=== PATIENT | male | born 1940 | race Caucasian/White ===

== ENCOUNTER 2018-02-18 10:51 | Emergency (ER) | payer OTHER, MEDICARE ==
[~2018-02-18] VITALS: Ht 175.3 cm; Wt 82.6 kg
[~2018-02-18 10:51] MED LIST: AUGMENTIN 875-1 EACH PO; BRILINTA90 M1 PO; CALCIUM + D 6001 TAB PO; GABAPENTIN100 M2 PO; HEPARIN-1/25000 UNIT IV; LEVAQUIN500 MG PO; LEVOTHYROXINE100 MC1 PO; LEVOTHYROXINE75 MCG PO; LISINOPRIL10 MG PO; METOPROLOL TART50 MG PO; MULTIVITAMIN1 TAB PO; SIMVASTATIN40 MG PO; TAMSULOSIN HYD0.4 MG PO; VITAMIN C500 M3 PO; VITAMIN D31000 UNI2 PO
--- NOTE | 2018-02-18 11:19 | ED EAR COMPLAINT ---
History of Present Illness General Chief Complaint: Ear Complaints Stated Complaint: CLOGGED EARS Source: patient Exam Limitations: no limitations Vital Signs & Intake/Output Vital Signs & Intake/Output Vital Signs Date Time Temp Pulse Resp B/P B/P Pulse O2 O2 Flow FiO2 Mean Ox Delivery Rate 02/18 1240 98.7 67 18 177/80 99 Room Air 02/18 1118 96.6 71 18 156/76 98 Room Air Allergies Coded Allergies: aspirin (EPISTAXIS 08/17/16) Reconcile Medications Ascorbic Acid (Vitamin C) (Unknown Strength) TAB (Unknown Dose) PO DAILY SUPPLEMENT (Reported) Augmentin (Augmentin 500-125 Tablet) 500 MG-125 MG TABLET 1 TAB PO BID OTITIS MEDIA Cholecalciferol (Vitamin D3) 1,000 UNIT TABLET 1 TAB PO DAILY SUPPLEMENT ( Reported) Gabapentin 100 MG CAPSULE 3 CAP PO TID PAIN (Reported) Levothyroxine Sodium 75 MCG TABLET 1 TAB PO DAILY AC THYROID (Reported) Metoprolol Succinate 25 MG TAB 1 TAB PO DAILY HTN (Reported) Multivitamin (Multiple Vitamins) 1 TAB TAB 1 TAB PO DAILY SUPPLEMENT ( Reported) Simvastatin 40 MG TABLET 1 TAB PO QPM CHOLESTEROL (Reported) TAMSULOSIN HCL (Tamsulosin Hydrochloride) 0.4 MG CAP.ER.24H 1 CAP PO DAILY PROSTATE (Reported) Triage Note: PT STATES HE HAS HAD AN ITCHY EAR SINCE WEDNESDAY PT STATES HE HAS BEEN USING DEBROX IN THE LEFT EAR BUT HE STILL CAN'T HEAR. PT STATES NO PAIN JUST CAN'T HEAR OUT OF IT. Triage Nurses Notes Reviewed? yes Onset: Gradual Duration: constant Timing: recent history Severity: moderate Severity Numbers: 5 HPI: Patient is a 77-year-old male who presents emergency room with concerns of muffled hearing sensation to his left ear that began 3-4 days ago patient was evaluated yesterday by primary care doctor and had cerumen disimpaction and was given Debrox however patient states he has continued ear fullness and decreased hearing sensation Patient is also complaining of similar symptoms to the right ear. Denies any fever chills trauma Denies any ear pain (Mendoza Lorenz) Past History Travel History Traveled to [place] past 21 day No Medical History Any Pertinent Medical History? 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 No (Mendoza Lorenz) Review of Systems Review of Systems Constitutional: Reports: no symptoms. EENTM: Reports: see HPI. Denies: ear discharge, ear pain, ear redness. Respiratory: Reports: no symptoms. Cardiovascular: Reports: no symptoms. GI: Reports: no symptoms. Genitourinary: Reports: no symptoms. Musculoskeletal: Reports: no symptoms. Skin: Reports: no symptoms. Neurological/Psychological: Reports: no symptoms. Hematologic/Endocrine: Reports: no symptoms. Immunologic/Allergic: Reports: no symptoms. All Other Systems: Reviewed and Negative (Mendoza Lorenz) Physical Exam Physical Exam General Appearance: no apparent distress, alert, comfortable Head: atraumatic Eyes: Bilateral: normal appearance, PERRL. Ears: Right: other (CLEAR FLUID BEHIND TM). Nose: normal inspection Mouth/Throat: normal mouth inspection, pharynx normal Neck: normal inspection Cardiovascular/Respiratory: no respiratory distress Neurologic/Psych: no motor/sensory deficits, awake, alert Skin: intact, normal color, warm/dry Comments: EAR- LEFT- EXTERNAL auditory canal noted complete cerumen impaction Nontender external anatomy upon palpation (Mendoza Lorenz) Progress Differential Diagnoses I considered the following diagnoses in my evaluation of the patient: [Tympanic membrane perforation cerumen impaction and otitis media or otitis externa] Plan of Care: Patient's left ear was soaked with warm water and peroxide Patient does state that yesterday during the cerumen disimpaction that the primary care doctor did scratch the ear in which she was noted bleeding yesterday After patient's ear was soaked with warm water and peroxide with minimal curet disimpaction there was noted active bleeding The tympanic membrane was on visualized, patient will prophylactically be administered antibiotics and was strongly advised to follow-up with ENT Bleeding was controlled prior to discharge Patient had no questions on discharge Initial ED EKG: none (Mendoza Lorenz) Departure Departure Disposition: HOME OR SELF CARE Condition: Stable Clinical Impression Primary Impression: Impacted cerumen of left ear Secondary Impressions: Bleeding from left ear Referrals: Jenny MORRELL,Rand Lewis MD,Sheila (PCP/Family) Additional Instructions: As discussed TODAY please follow-up AND CALL ENT Dr. Alvarado for further evaluation treatment, if symptoms worsen or if YOU develop a new concerning symptom return to emergency room Begin the prescription of Augmentin as directed, PRESCRIPTION is waiting at [facility] Departure Forms: Customer Survey General Discharge Information Prescriptions: Current Visit Scripts Augmentin (Augmentin 500-125 Tablet) 1 TAB PO BID #20 TAB (Mendoza Lorenz) PA/PURCHASING SUPERVISOR Co-Sign Statement Statement: ED Attending supervision documentation- [] I saw and evaluated the patient. I have also reviewed all the pertinent lab results and diagnostic results. I agree with the findings and the plan of care as documented in the PA's/PURCHASING SUPERVISOR's documentation. [X] I have reviewed the ED Record and agree with the PA's/PURCHASING SUPERVISOR's documentation. [] Additions or exceptions (if any) to the PAs/PURCHASING SUPERVISOR's note and plan are summarized below: [] (David MORRELL,Nito Triana)
[2018-02-18] MEDS ORDERED: METOPROLOL SUCC25 M1 PO (12:15)
[2018-02-18] MEDS ORDERED: AUGMENTIN 500-1 EACH PO (12:37)
[2018-02-18 12:40] VITALS: BP 177/80
== END 2018-02-18 12:41 ==
LOC: ERH 10:51
DX: H61.22 Impacted cerumen, left ear (principal); H92.22 Otorrhagia, left ear; Z87.891 Personal history of nicotine dependence